=== PATIENT | male | born 1940 | race Caucasian/White ===

== ENCOUNTER 2018-03-28 01:14 | Outpatient (CLI) | payer MEDICARE, BC, SELFPAY ==
--- NOTE | 2018-03-28 07:58 | DI.US_ITS ---
SYMPTOM/DIAGNOSIS: UPPER ABD PAIN, BILAT, R10.9 ABDOMEN ULTRASOUND: The visualized liver parenchyma is normal in appearance. There is no evidence of cholelithiasis or biliary dilatation. The pancreas is unremarkable as visualized. Abdominal aorta and IVC are of normal diameter. The kidneys and spleen are unremarkable in appearance. CONCLUSION: Negative abdomen ultrasound.
== END 2018-03-28 01:34 ==
PROVIDERS: PCP Family Medicine; Visit Provider Family Medicine
DX: R10.84 Generalized abdominal pain (principal)
CPT/HCPCS: 76700

== ENCOUNTER 2018-03-30 01:07 | Outpatient (CLI) | payer MEDICARE, BC, SELFPAY | END 2018-03-30 01:27 | PROVIDERS: PCP Family Medicine; Visit Provider Family Medicine | DX: E11.9 Type 2 diabetes mellitus without complications (principal) | CPT/HCPCS: 36415; 83036 ==

== ENCOUNTER 2018-07-06 09:35 | Outpatient (CLI) | payer MEDICARE, BC, SELFPAY | END 2018-07-06 09:55 | PROVIDERS: PCP Family Medicine; Visit Provider Family Medicine | DX: E11.29 Type 2 diabetes mellitus with other diabetic kidney complication (principal) | CPT/HCPCS: 36415; 83036 ==

== ENCOUNTER 2018-10-02 02:05 | Outpatient (CLI) | payer MEDICARE, BC, SELFPAY ==
[2018-10-02 12:12] LABS: Hemoglobin A1C 7.4 % (4.5-6.2)
== END 2018-10-02 02:25 ==
PROVIDERS: PCP Family Medicine; Visit Provider Family Medicine
DX: E11.9 Type 2 diabetes mellitus without complications (principal)
CPT/HCPCS: 36415; 83036

== ENCOUNTER 2018-10-05 02:09 | Outpatient (CLI) | payer MEDICARE, BC, SELFPAY ==
[2018-10-05 12:50] LABS: HCT 36.4 % (40.0-50.0); HGB 12.7 g/dL (13.5-17.5); Mean Corp. HGB Concentration 34.9 g/dL (32.0-36.0); Mean Corpuscular Hemoglobin 31.5 pg (27.0-33.0); Mean Corpuscular Volume 90.3 fL (80-95); Mean Platelet Volume 10.3 fL (8.0-11.0); Platelet Count 231 x1000/uL (130-400); RBC 4.03 m/cumm (4.50-6.00); RBC Distribution Width 12.7 % (11.8-14.1); White Blood Cell Count 4.36 k/cumm (4.4-10.8)
== END 2018-10-05 02:29 ==
PROVIDERS: PCP Family Medicine; Visit Provider Family Medicine
DX: D64.9 Anemia, unspecified (principal)
CPT/HCPCS: 36415; 85027

== ENCOUNTER 2019-01-04 08:02 | Outpatient (CLI) | payer MEDICARE, BC, SELFPAY ==
[2019-01-04 11:39] LABS: Hemoglobin A1C 7.4 % (4.5-6.2)
[2019-01-04 11:42] LABS: CREATININE 1.29 mg/dL (0.70-1.30); Calculated LDL 56 mg/dL; Cholesterol 131 mg/dL (50-200); Estimated GFR 53.73 (mL/min/1.73m2); HDL Cholesterol 62 mg/dL (40-60); Potassium 4.8 mmol/L (3.5-5.1); Triglyceride 69 mg/dL (30-150)
== END 2019-01-04 08:22 ==
PROVIDERS: PCP Family Medicine; Visit Provider Family Medicine
DX: E11.29 Type 2 diabetes mellitus with other diabetic kidney complication (principal); E78.5 Hyperlipidemia, unspecified
CPT/HCPCS: 36415; 80061; 83721; 82565; 83036; 84132